=== PATIENT | female | born 1960 | race Caucasian/White ===

== ENCOUNTER 2017-02-11 17:03 | Inpatient (IN) | payer OTHER ==
[2017-02-11] MEDS ORDERED: RX INFO: IV CONTRAST WAS GIVEN 1 EACH MISC MISCELLANE PRN (17:19)
--- NOTE | 2017-02-11 17:30 | ED ---
General Adult HPI - General Chief complaint: Abdominal Pain Stated complaint: abd pain Time Seen by Provider: 02/11/17 17:18 Source: patient, RN notes reviewed, old records reviewed Mode of arrival: ambulatory Limitations: no limitations - History of Present Illness Initial comments: This is a 36-year-old female here for evaluation of bowel pain with diarrhea. Patient has significant medical history consistent for gastric bypass surgery years ago, patient is always had it issues with indigestion and diarrhea. Patient also states she has had a colostomy in the past with no found abnormalities. Patient denies fever denies blood in the stool, no vomiting. No travel history no sick contacts, no family members with similar complaint - Related Data Home Medications Medication Instructions Recorded Confirmed Albuterol Sulfate [Ventolin HFA] 1 - 2 puff INHALATION RT-QID PRN 02/11/1702/11 Beclomethasone Dipropionate [Qvar 2 puff INHALATION RT-BID PRN 02/11/17 02/11/17 40 mcg] DULoxetine HCL [Cymbalta] 60 mg PO DAILY 02/11/17 02/11/17 Levothyroxine Sodium [Synthroid] 150 mcg PO DAILY 02/11/17 02/11/17 Methocarbamol [Robaxin] 500 mg PO BID PRN 02/11/17 02/11/17 Simvastatin [Zocor] 20 mg PO HS 02/11/17 02/11/17 amLODIPine [Norvasc] 10 mg PO DAILY 02/11/17 02/11/17 lamoTRIgine [LaMICtal] 200 mg PO BID 02/11/17 02/11/17 rOPINIRole HCL [Requip] 0.25 mg PO HS 02/11/17 02/11/17 traZODone HCL 50 mg PO HS PRN 02/11/17 02/11/17 traZODone HCL 50 mg PO QAM 02/11/17 02/11/17 Allergies Allergy/AdvReac Type Severity Reaction Status Date / Time morphine Allergy Rash/Hives Verified 02/11/17 17:49 Sulfa (Sulfonamide Allergy Rash/Hives Verified 02/11/17 17:49 Antibiotics) Review of Systems ROS Statement: Those systems with pertinent positive or pertinent negative responses have been documented in the HPI. ROS Other: All systems not noted in ROS Statement are negative. Past Medical History Past Medical History: Hypertension, Thyroid Disorder Additional Past Medical History / Comment(s): RLS History of Any Multi-Drug Resistant Organisms: None Reported Past Surgical History: Bariatric Surgery, Hysterectomy, Orthopedic Surgery, Tonsillectomy Additional Past Surgical History / Comment(s): wrist, rotator cuff, bunionectomy Past Psychological History: Depression Smoking Status: Current every day smoker Past Alcohol Use History: Rare Past Drug Use History: None Reported General Exam Limitations: no limitations General appearance: alert, in no apparent distress Head exam: Present: atraumatic, normocephalic, normal inspection Eye exam: Present: normal appearance, PERRL, EOMI. Absent: scleral icterus, conjunctival injection, periorbital swelling ENT exam: Present: normal exam, mucous membranes moist Neck exam: Present: normal inspection. Absent: tenderness, meningismus, lymphadenopathy Respiratory exam: Present: normal lung sounds bilaterally. Absent: respiratory distress, wheezes, rales, rhonchi, stridor Cardiovascular Exam: Present: regular rate, normal rhythm, normal heart sounds. Absent: systolic murmur, diastolic murmur, rubs, gallop, clicks GI/Abdominal exam: Present: soft, normal bowel sounds. Absent: distended, tenderness, guarding, rebound, rigid Extremities exam: Present: normal inspection, full ROM, normal capillary refill. Absent: tenderness, pedal edema, joint swelling, calf tenderness Back exam: Present: normal inspection Neurological exam: Present: alert, oriented X3, CN II-XII intact Psychiatric exam: Present: normal affect, normal mood Skin exam: Present: warm, dry, intact, normal color. Absent: rash Course Vital Signs 02/11/17 02/11/17 02/11/17 17:13 18:20 18:52 Temperature 98.3 F Pulse Rate 94 87 92 Respiratory 20 18 18 Rate Blood Pressure 124/85 139/68 145/70 O2 Sat by Pulse 98 98 95 Oximetry Medical Decision Making - Lab Data Result diagrams: 02/11/17 17:30 02/11/17 17:30 Lab Results 02/11/17 02/11/17 02/11/17 Range/Units 17:30 17:30 17:30 WBC 7.4 (3.8-10.6) k/uL RBC 4.60 (3.80-5.40) m/uL Hgb 14.0 (11.4-16.0) gm/dL Hct 40.9 (34.0-46.0) % MCV 89.0 (80.0-100.0) fL MCH 30.5 (25.0-35.0) pg MCHC 34.3 (31.0-37.0) g/dL RDW 13.5 (11.5-15.5) % Plt Count 480 H (150-450) k/uL Neutrophils % 70 % Lymphocytes % 17 % Monocytes % 8 % Eosinophils % 2 % Basophils % 1 % Neutrophils # 5.2 (1.3-7.7) k/uL Lymphocytes # 1.2 (1.0-4.8) k/uL Monocytes # 0.6 (0-1.0) k/uL Eosinophils # 0.1 (0-0.7) k/uL Basophils # 0.0 (0-0.2) k/uL Sodium 138 (137-145) mmol/L Potassium 3.7 (3.5-5.1) mmol/L Chloride 104 (98-107) mmol/L Carbon Dioxide 23 (22-30) mmol/L Anion Gap 11 mmol/L BUN 8 (7-17) mg/dL Creatinine 0.49 L (0.52-1.04) mg/dL Est GFR (MDRD) Af Amer >60 (>60 ml/min/1.73 sqM) Est GFR (MDRD) Non-Af >60 (>60 ml/min/1.73 sqM) Glucose 78 (74-99) mg/dL Plasma Lactic Acid Jaiden (0.7-2.0) mmol/L Calcium 8.9 (8.4-10.2) mg/dL Total Bilirubin 0.6 (0.2-1.3) mg/dL AST 27 (14-36) U/L ALT 30 (9-52) U/L Alkaline Phosphatase 149 H (38-126) U/L Total Creatine Kinase 95 (30-135) U/L CK-MB (CK-2) 1.2 (0.0-2.4) ng/mL CK-MB (CK-2) Rel Index 1.3 Troponin I <0.012 (0.000-0.034) ng/mL Total Protein 6.4 (6.3-8.2) g/dL Albumin 3.8 (3.5-5.0) g/dL Amylase 121 H (30-110) U/L Lipase 1039 H (23-300) U/L Urine Color Urine Appearance (Clear) Urine pH (5.0-8.0) Ur Specific [place] (1.001-1.035) Urine Protein (Negative) Urine Glucose (UA) (Negative) Urine Ketones (Negative) Urine Blood (Negative) Urine Nitrite (Negative) Urine Bilirubin (Negative) Urine Urobilinogen (<2.0) mg/dL Ur Leukocyte Esterase (Negative) Urine WBC (0-5) /hpf Ur Squamous Epith Cells (0-4) /hpf Urine Bacteria (None) /hpf Hyaline Casts (0-2) /lpf Urine Mucus (None) /hpf 02/11/17 02/11/17 Range/Units 17:30 17:30 WBC (3.8-10.6) k/uL RBC (3.80-5.40) m/uL Hgb (11.4-16.0) gm/dL Hct (34.0-46.0) % MCV (80.0-100.0) fL MCH (25.0-35.0) pg MCHC (31.0-37.0) g/dL RDW (11.5-15.5) % Plt Count (150-450) k/uL Neutrophils % % Lymphocytes % % Monocytes % % Eosinophils % % Basophils % % Neutrophils # (1.3-7.7) k/uL Lymphocytes # (1.0-4.8) k/uL Monocytes # (0-1.0) k/uL Eosinophils # (0-0.7) k/uL Basophils # (0-0.2) k/uL Sodium (137-145) mmol/L Potassium (3.5-5.1) mmol/L Chloride (98-107) mmol/L Carbon Dioxide (22-30) mmol/L Anion Gap mmol/L BUN (7-17) mg/dL Creatinine (0.52-1.04) mg/dL Est GFR (MDRD) Af Amer (>60 ml/min/1.73 sqM) Est GFR (MDRD) Non-Af (>60 ml/min/1.73 sqM) Glucose (74-99) mg/dL Plasma Lactic Acid Jaiden 0.9 (0.7-2.0) mmol/L Calcium (8.4-10.2) mg/dL Total Bilirubin (0.2-1.3) mg/dL AST (14-36) U/L ALT (9-52) U/L Alkaline Phosphatase (38-126) U/L Total Creatine Kinase (30-135) U/L CK-MB (CK-2) (0.0-2.4) ng/mL CK-MB (CK-2) Rel Index Troponin I (0.000-0.034) ng/mL Total Protein (6.3-8.2) g/dL Albumin (3.5-5.0) g/dL Amylase (30-110) U/L Lipase (23-300) U/L Urine Color Yellow Urine Appearance Cloudy H (Clear) Urine pH 6.0 (5.0-8.0) Ur Specific [place] 1.012 (1.001-1.035) Urine Protein Trace H (Negative) Urine Glucose (UA) Negative (Negative) Urine Ketones 2+ H (Negative) Urine Blood Negative (Negative) Urine Nitrite Negative (Negative) Urine Bilirubin Negative (Negative) Urine Urobilinogen <2.0 (<2.0) mg/dL Ur Leukocyte Esterase Negative (Negative) Urine WBC 1 (0-5) /hpf Ur Squamous Epith Cells 7 H (0-4) /hpf Urine Bacteria Rare H (None) /hpf Hyaline Casts 2 (0-2) /lpf Urine Mucus Many H (None) /hpf Disposition Clinical Impression: Abdominal pain, Acute pancreatitis Disposition: ADMITTED IP TO THIS HOSP Condition: Good Referrals: Nikhil Jara MD [Primary Care Provider] - 1-2 days
[2017-02-11 17:56] LABS: Appearance,Urine Cloudy (Clear); Bacteria,Urine Rare /hpf; Bilirubin,Urine Negative (Negative); Glucose,Urine (UA) Negative (Negative); Ketones,Urine 2+ (Negative); Leukocyte Esterase,Urine Negative (Negative); Mucus,Urine Many /hpf; Nitrite,Urine Negative (Negative); Particle Count 6084; Protein,Urine Trace (Negative); Specific Gravity,Urine 1.012 (1.001-1.035); Squamous Epithelial Cell,Urine 7 /hpf (0-4); UA Billing (MACRO vs. MICRO) MICRO; Urobilinogen,Urine <2.0 mg/dL (<2.0); WBC,Urine 1 /hpf (0-5)
[2017-02-11 18:04] LABS: ALT 30 U/L (9-52); AST 27 U/L (14-36); Alkaline Phosphatase 149 U/L (38-126); Amylase 121 U/L (30-110); Anion Gap 11 mmol/L; Blood Urea Nitrogen 8 mg/dL (7-17); Calcium 8.9 mg/dL (8.4-10.2); Carbon Dioxide 23 mmol/L (22-30); Chloride 104 mmol/L (98-107); Glucose 78 mg/dL (74-99); Non-African American GFR(MDRD) >60 (>60 ml/min/1.73 sqM); Potassium 3.7 mmol/L (3.5-5.1); Sodium 138 mmol/L (137-145); Total Bilirubin 0.6 mg/dL (0.2-1.3); Total Protein 6.4 g/dL (6.3-8.2)
[2017-02-11 18:07] LABS: Creatine Kinase 95 U/L (30-135)
[2017-02-11 18:12] LABS: Basophils % (A) 1 %; CH 29.1; CHCM 32.9; Eosinophils # (A) 0.1 k/uL (0-0.7); Eosinophils % (A) 2 %; HCT 40.9 % (34.0-46.0); HDW 2.46; Luc # (Auto) 0.19; Luc % (Auto) 3; Lymphocytes # (A) 1.2 k/uL (1.0-4.8); Lymphocytes % (A) 17 %; MCH 30.5 pg (25.0-35.0); MCHC 34.3 g/dL (31.0-37.0); Mean Platelet Volume 6.7; Monocytes # (A) 0.6 k/uL (0-1.0); Monocytes % (A) 8 %; Neutrophils # (A) 5.2 k/uL (1.3-7.7); Neutrophils % (A) 70 %; RDW 13.5 % (11.5-15.5); WBC 7.4 k/uL (3.8-10.6); WBC (Perox) 7.86
[2017-02-11 18:21] LABS: Creatine Kinase MB 1.2 ng/mL (0.0-2.4); Troponin I <0.012 ng/mL (0.000-0.034)
--- NOTE | 2017-02-11 18:26 | CT ---
EXAMINATION TYPE: CT abdomen pelvis w con DATE OF EXAM: 02/11/2017 COMPARISON: NONE HISTORY: Patient complains of uncontrollable diarrhea. CT DLP: 488.6 mGycm CONTRAST: CT scan of the abdomen and pelvis is performed without Oral Contrast and with IV Contrast, patient in jected with 100 mL of Omnipaque 300. FINDINGS: LUNG BASES-: No visible nodule. No infiltrate. LIVER/GB: No calcified gallstones. No space occupying hepatic lesion. Biliary tree is of normal ca liber. PANCREAS: No inflammation. No distinct mass. SPLEEN: No splenic enlargement. No lesion seen. ADRENALS: No nodule. No thickening. KIDNEYS/BLADDER: No hydronephrosis. No nephrolithiasis. No disctinct renal mass. Urinary bladder g rossly unremarkable. BOWEL: Changes of gastric bypass procedure. There is diffuse wall thickening involving the colon from the sigmoid colon. The cecum which may reflect infectious or inflammatory colitis. No evidence for a bscess or perforation. Normal appendix. GENITAL ORGANS: Hysterectomy changes are noted. No evidence for adnexal mass. LYMPH NODES: No greater than 1cm abdominal or pelvic lymph nodes are appreciated. AORTA: No significant abnormality. OSSEOUS STRUCTURES: Postoperative changes lumbar spine. OTHER: No significant additional abnormality is seen. IMPRESSION: 1. Nonspecific pancolitis.
[2017-02-11] MEDS ORDERED: ONDANSETRON 4 MG/2 ML VIAL IVP STA (18:33)
[2017-02-11] MEDS ORDERED: ONDANSETRON 4 MG/2 ML VIAL IVP PRN (18:33)
[2017-02-11] MEDS ORDERED: MORPHINE SULFATE 4 MG/ML SYRINGE IVP STA (18:33)
[2017-02-11] MEDS ORDERED: PANTOPRAZOLE 40 MG/10 ML VIAL IVP STA (18:33)
[2017-02-11] MEDS ORDERED: SODIUM CHLORIDE 0.9% 2,000 ML IV STA (18:41)
[2017-02-11] MEDS ORDERED: SODIUM CHLORIDE 0.9% 1,000 ML IV STA (18:41)
[2017-02-11] MEDS ORDERED: SODIUM CHLORIDE 0.9% 500 ML IV STA (18:41)
[2017-02-11] MEDS ORDERED: diphenhydrAMINE 50 MG/ML 1 ML VIAL IVP PRN (19:10)
[2017-02-11] MEDS ORDERED: METHOCARBAMOL 500 MG TAB PO PRN (21:32)
[2017-02-11] MEDS ORDERED: traZODone HCL 50 MG TAB PO PRN (21:32)
[2017-02-11] MEDS: MORPHINE SULFATE 4 MG/ML SYRINGE IVP PRN (23:18)
[2017-02-11] MEDS: lamoTRIgine 100 MG TAB PO SCH (23:22)
[2017-02-12] MEDS: MORPHINE SULFATE 4 MG/ML SYRINGE IVP PRN ×6 (03:07→23:18)
[2017-02-12] MEDS: BUDESONIDE 0.5 MG/2 ML NEBU INHALATION SCH ×2 (06:51→19:24)
[2017-02-12] MEDS: LEVOTHYROXINE 75 MCG TAB PO SCH (07:04)
[2017-02-12 07:34] VITALS: RESP 16
[2017-02-12] MEDS ORDERED: VANCOMYCIN ORAL SOLUTION 250 MG/5 ML BOTTLE PO SCH (08:15)
[2017-02-12] MEDS: PANTOPRAZOLE 40 MG/10 ML VIAL IVP SCH (08:57)
[2017-02-12] MEDS: lamoTRIgine 100 MG TAB PO SCH ×2 (08:58→20:53)
[2017-02-12] MEDS: traZODone HCL 50 MG TAB PO SCH (08:58)
[2017-02-12] MEDS: ENOXAPARIN 40 MG/0.4 ML SYRINGE SQ SCH (08:58)
[2017-02-12] MEDS: VANCOMYCIN ORAL SOLUTION 250 MG/5 ML BOTTLE PO SCH ×4 (08:58→23:18)
[2017-02-12] MEDS: amLODIPine 10 MG TAB PO SCH (08:58)
[2017-02-12] MEDS: DULoxetine HCL 60 MG CAPSULE.DR PO SCH (08:58)
[2017-02-12] MEDS: CHERRY FLAVOR 60 ML BOTTLE PO PRN ×4 (08:59→23:17)
[2017-02-12] MEDS: SODIUM CHLORIDE 0.9% 1,000 ML IV SCH ×2 (10:33→20:53)
[2017-02-12] MEDS: ALBUTEROL NEBULIZED 2.5 MG/3 ML INHALATION PRN (19:25)
[2017-02-13] MEDS: MORPHINE SULFATE 4 MG/ML SYRINGE IVP PRN ×2 (03:56→08:27)
[2017-02-13] MEDS: VANCOMYCIN ORAL SOLUTION 250 MG/5 ML BOTTLE PO SCH ×2 (06:31→11:06)
[2017-02-13] MEDS: CHERRY FLAVOR 60 ML BOTTLE PO PRN ×2 (06:31→11:06)
[2017-02-13] MEDS: SODIUM CHLORIDE 0.9% 1,000 ML IV SCH (06:33)
[2017-02-13] MEDS: LEVOTHYROXINE 75 MCG TAB PO SCH (06:33)
[2017-02-13 08:14] VITALS: BP 126/69; TEMP 98
[2017-02-13 08:16] LABS: ALT 28 U/L (9-52); AST 17 U/L (14-36); Alkaline Phosphatase 113 U/L (38-126); Amylase <30 U/L (30-110); Anion Gap 8 mmol/L; Blood Urea Nitrogen 3 mg/dL (7-17); Calcium 8.4 mg/dL (8.4-10.2); Carbon Dioxide 27 mmol/L (22-30); Chloride 102 mmol/L (98-107); Glucose 92 mg/dL (74-99); Non-African American GFR(MDRD) >60 (>60 ml/min/1.73 sqM); Potassium 3.1 mmol/L (3.5-5.1); Sodium 137 mmol/L (137-145); Total Bilirubin 0.4 mg/dL (0.2-1.3); Total Protein 5.4 g/dL (6.3-8.2)
[2017-02-13] MEDS: PANTOPRAZOLE 40 MG/10 ML VIAL IVP SCH (08:28)
[2017-02-13] MEDS: ENOXAPARIN 40 MG/0.4 ML SYRINGE SQ SCH (08:28)
[2017-02-13] MEDS: amLODIPine 10 MG TAB PO SCH (08:28)
[2017-02-13] MEDS: DULoxetine HCL 60 MG CAPSULE.DR PO SCH (08:28)
[2017-02-13] MEDS: lamoTRIgine 100 MG TAB PO SCH (08:28)
[2017-02-13] MEDS: traZODone HCL 50 MG TAB PO SCH (08:29)
[2017-02-13] MEDS ORDERED: MORPHINE SULFATE 2 MG/ML SYRINGE IVP PRN (08:46)
[2017-02-13] MEDS: POTASSIUM CHLORIDE ER 20 MEQ TAB.ER PO SCH ×2 (09:16→11:06)
[2017-02-13] MEDS: ALBUTEROL NEBULIZED 2.5 MG/3 ML INHALATION PRN (11:09)
[2017-02-13] MEDS: BUDESONIDE 0.5 MG/2 ML NEBU INHALATION SCH (11:09)
[2017-02-13 11:10] VITALS: PULSE 88
--- NOTE | 2017-02-13 13:35 | P.HPIM ---
History of Present Illness H&P Date: 02/12/17 Chief Complaint: Frequent stooling 56-year-old female presented on the day of admission to the emergency room to be evaluated for abdominal pain with frequent stooling. Patient gives a history of having gastric bypass surgery many years ago and patient states that she always has problems with loose stools. Patient was seen in the emergency room noted to have a lipase elevated 1000. Patient was started on IV fluid and admitted to the services of the attending. Patient gives no history of having prior pancreatitis. Denies any use of alcohol. A stool was collected was positive for C. diff patient was started on by mouth vancomycin patient had a CAT scan of the abdomen pelvis with contrast. Reviewing the report showed no hydronephrosis. No calcified gallstones noted pancreas was not inflamed no mass the bowel showed changes of gastric bypass procedure. No evidence for an abscess or perforation the appendix normal the cecum may reflect infectious or inflammatory colitis patient is a poor historian when questioning the patient if there has been any recent antibiotics for any recent treatment patient states she's not sure she cannot recall Review of Systems Essentially unremarkable except as mentioned in the present illness Past Medical History Past Medical History: Hyperlipidemia, Hypertension, Thyroid Disorder Additional Past Medical History / Comment(s): RLS, chronic diarrhea (frequent); DJD with spinal surgury x 4 History of Any Multi-Drug Resistant Organisms: C-DIFF Date of last positivie culture/infection: 02/12/17 MDRO Source:: stool Past Surgical History: Bariatric Surgery, Hysterectomy, Orthopedic Surgery, Tonsillectomy Additional Past Surgical History / Comment(s): Neelam-en-Y sx in 1999; wrist, rotator cuff, bunionectomy; neck surgery Past Anesthesia/Blood Transfusion Reactions: No Reported Reaction Past Psychological History: Bipolar, Depression Smoking Status: Current every day smoker Past Alcohol Use History: Rare Past Drug Use History: None Reported - Past Family History Father Family Medical History: CVA/TIA Mother Family Medical History: Deep Vein Thrombosis (DVT), Pulmonary Embolus Medications and Allergies Home Medications Medication Instructions Recorded Confirmed Type Albuterol Sulfate [Ventolin HFA] 1 - 2 puff INHALATION RT-QID PRN 02/11/1702/11 History Beclomethasone Dipropionate [Qvar 2 puff INHALATION RT-BID PRN 02/11/17 History 40 mcg] DULoxetine HCL [Cymbalta] 60 mg PO DAILY 02/11/17 02/11/17 History Levothyroxine Sodium [Synthroid] 150 mcg PO DAILY 02/11/17 02/11/17 History Methocarbamol [Robaxin] 500 mg PO BID PRN 02/11/17 02/11/17 History Simvastatin [Zocor] 20 mg PO HS 02/11/17 02/11/17 History amLODIPine [Norvasc] 10 mg PO DAILY 02/11/17 02/11/17 History lamoTRIgine [LaMICtal] 200 mg PO BID 02/11/17 02/11/17 History rOPINIRole HCL [Requip] 0.25 mg PO HS 02/11/17 02/11/17 History traZODone HCL 50 mg PO HS PRN 02/11/17 02/11/17 History traZODone HCL 50 mg PO QAM 02/11/17 02/11/17 History Allergies Allergy/AdvReac Type Severity Reaction Status Date / Time morphine Allergy Rash/Hives Verified 02/11/17 17:49 Sulfa (Sulfonamide Allergy Rash/Hives Verified 02/11/17 17:49 Antibiotics) Physical Exam Vitals: Vital Signs Temp Pulse Pulse Resp BP Pulse Ox 02/13/17 11:22 88 02/13/17 11:09 88 02/13/17 08:00 16 02/13/17 07:00 98.0 F 79 16 126/69 93 L 02/12/17 23:00 97.7 F 86 16 103/72 97 02/12/17 19:45 92 02/12/17 19:25 90 02/12/17 15:00 99.6 F 95 16 111/59 92 L Intake and Output 02/12/17 02/13/17 02/13/17 22:59 06:59 14:59 Other: # Voids 1 2 # Bowel Movements 2 GENERAL APPEARANCE: 56 -year-old female patient is alert, oriented, in no acute distress. VITAL SIGNS: Reviewed HEENT: Head is normocephalic and atraumatic. Pupils are equal and reactive. The nares are patent. Oropharynx is clear without lesions. NECK: Supple without lymphadenopathy. Traches midline. HEART: S1, S2. Regular rate and rhythm. No murmur noted denying chest pain LUNGS: No crackles or wheezes are heard. Essentially clear adequate air movement on room air ABDOMEN: Soft, nontender, nondistended with good bowel sounds. No peritoneal signs. No palpable organomegaly or masses. EXTREMITIES: Normal skin color and turgor. No cyanosis, rash, ulceration, clubbing or edema. Radial pedal pulses are 2/4 bilaterally. NEUROLOGICAL: No focal deficits. Strength and sensation are grossly intact. Results CBC & Chem 7: 02/11/17 17:30 02/13/17 07:35 Labs: Abnormal Lab Results - Last 24 Hours (Table) 02/13/17 Range/Units 07:35 Potassium 3.1 L (3.5-5.1) mmol/L BUN 3 L (7-17) mg/dL Creatinine 0.42 L (0.52-1.04) mg/dL Total Protein 5.4 L (6.3-8.2) g/dL Albumin 3.0 L (3.5-5.0) g/dL Amylase <30 L (30-110) U/L Microbiology - Last 24 Hours (Table) 02/11/17 17:30 Urine Culture - Final Urine,Voided Thrombosis Risk Factor Assmnt - Choose All That Apply Any of the Below Risk Factors Present?: Yes Each Factor Represents 1 point: Age 41-60 years, Obesity (BMI >25) Each Risk Factor Represents 3 Points: Positive Factor V Leiden, Family history of DVT/PE Thrombosis Risk Factor Assessment Total Risk Factor Score: 8 Thrombosis Risk Factor Assessment Level: High Risk Assessment and Plan Plan: Impression Present on admission abdominal pain frequent stooling suspect due to C. diff Present on admission stool positive for C. diff History of gastric bypass surgery for treatment of morbid obesity Present on admission electrolyte abnormality hypokalemia CAT scan abdomen and pelvis with contrast showed nonspecific pancolitis Present on admission abdominal pain suspect due to acute pancreatitis Hypothyroid on supplements Mood disorder Current every day smoker Plan Continue by mouth vancomycin for treatment of the C. diff Repeat labs in the morning Resume home meds as appropriate IV fluid for hydration DVT and GI prophylaxis Further recommendations pending The above impression and plan of care have been discussed and directed by signing physician. Makayla Desir nurse practitioner acting as scribe for signing physician.
--- NOTE | 2017-02-13 13:46 | P.DS ---
Providers Date of admission: 02/11/17 19:09 Expected date of discharge: 02/13/17 Attending physician: Nikhil Jara Primary care physician: Nikhil Jara [facility] Course: 56-year-old female presented on the day of admission to the emergency room to be evaluated for abdominal pain with frequent stooling. Patient gives a history of having gastric bypass surgery many years ago and patient states that she always has problems with loose stools. Patient was seen in the emergency room noted to have a lipase elevated 1000. Patient was started on IV fluid and admitted to the services of the attending. Patient gives no history of having prior pancreatitis. Denies any use of alcohol. A stool was collected was positive for C. diff patient was started on by mouth vancomycin patient had a CAT scan of the abdomen pelvis with contrast. Reviewing the report showed no hydronephrosis. No calcified gallstones noted pancreas was not inflamed no mass the bowel showed changes of gastric bypass procedure. No evidence for an abscess or perforation the appendix normal the cecum may reflect infectious or inflammatory colitis patient is a poor historian when questioning the patient if there has been any recent antibiotics for any recent treatment patient states she's not sure she cannot recall The lipase was repeated within 24 hours and on February 13 it was down to 28. Admitting lipase was 1039. Amylase on admission 121. Repeat amylase on the less than 30. AST and ALT were not elevated. Total bili was 0.4. Potassium was 3.1 which replacement was given. Patient stated the abdominal pain had improved. Patient was felt to be stable and appropriate proceed with a discharge to home Impression Present on admission abdominal pain frequent stooling suspect due to C. diff Present on admission stool positive for C. diff History of gastric bypass surgery for treatment of morbid obesity Present on admission electrolyte abnormality hypokalemia CAT scan abdomen and pelvis with contrast showed nonspecific pancolitis Present on admission abdominal pain suspect due to acute pancreatitis Hypothyroid on supplements Mood disorder Current every day smoker The above impression and plan of care have been discussed and directed by signing physician. Makayla Desir nurse practitioner acting as scribe for signing physician. Patient Condition at Discharge: Good Plan - Discharge Summary New Discharge Prescriptions: New Vancomycin Oral Solution 500 mg PO Q6HR #400 bottle Continue Beclomethasone Dipropionate [Qvar 40 mcg] 2 puff INHALATION RT-BID PRN PRN Reason: Shortness Of Breath traZODone HCL 50 mg PO HS PRN PRN Reason: Insomnia traZODone HCL 50 mg PO QAM lamoTRIgine [LaMICtal] 200 mg PO BID Methocarbamol [Robaxin] 500 mg PO BID PRN PRN Reason: Muscle Spasm DULoxetine HCL [Cymbalta] 60 mg PO DAILY rOPINIRole HCL [Requip] 0.25 mg PO HS amLODIPine [Norvasc] 10 mg PO DAILY Simvastatin [Zocor] 20 mg PO HS Levothyroxine Sodium [Synthroid] 150 mcg PO DAILY Albuterol Sulfate [Ventolin HFA] 1 - 2 puff INHALATION RT-QID PRN PRN Reason: Shortness Of Breath Discharge Medication List Albuterol Sulfate [Ventolin HFA] 1 - 2 puff INHALATION RT-QID PRN 02/11/17 [ History] Beclomethasone Dipropionate [Qvar 40 mcg] 2 puff INHALATION RT-BID PRN 02/11/17 [History] DULoxetine HCL [Cymbalta] 60 mg PO DAILY 02/11/17 [History] Levothyroxine Sodium [Synthroid] 150 mcg PO DAILY 02/11/17 [History] Methocarbamol [Robaxin] 500 mg PO BID PRN 02/11/17 [History] Simvastatin [Zocor] 20 mg PO HS 02/11/17 [History] amLODIPine [Norvasc] 10 mg PO DAILY 02/11/17 [History] lamoTRIgine [LaMICtal] 200 mg PO BID 02/11/17 [History] rOPINIRole HCL [Requip] 0.25 mg PO HS 02/11/17 [History] traZODone HCL 50 mg PO HS PRN 02/11/17 [History] traZODone HCL 50 mg PO QAM 02/11/17 [History] Vancomycin Oral Solution 500 mg PO Q6HR #400 bottle 02/13/17 [Rx] Follow up Appointment(s)/Referral(s): Nikhil Jara MD [Primary Care Provider] - 02/14/17 Patient Instructions/Handouts: Pancreatitis (DC), Clostridium Difficile Infection (DC) Activity/Diet/Wound Care/Special Instructions: NO alcohol NO smoking, cessation information given. Regular diet. Discharge Disposition: HOME SELF-CARE
[2017-02-13] MEDS ORDERED: POTASSIUM CHLORIDE ER 20 MEQ TAB.ER PO SCH (14:00)
--- NOTE | 2017-02-15 07:09 | HP ---
CHIEF COMPLAINT: Abdominal pain and diarrhea. HISTORY OF PRESENT ILLNESS: This is another admission for this 56-year-old white female. She presented to the emergency with epigastric pain and vomiting and was found to have pancreatitis. This was the first episode of pancreatitis for this lady. She has had a bypass procedure for weight loss. She has also had diarrhea for about 3 weeks. REVIEW OF SYSTEMS: She has had no hematemesis, melena, fever, etc. She does not drink. Review of systems, she has had no other complaints or problems. She has had no melena, hematochezia, jaundice, renal failure, etc. Past medical history, family history and personal social history revealed that she has a history of asthma and probably COPD. She has had bouts of depression and she has hypothyroidism. Her medications include: 1. Levothyroxine 0.15 mg. 2. Methocarbamol 500 mg twice a day p.r.n. 3. Requip 0.25 at bedtime p.r.n. 4. Simvastatin 20 mg at bedtime. 5. Norvasc 10 mg once a day. 6. Duloxetine 60 mg once a day. 7. Trazodone 50 mg one to three at bedtime p.r.n. sleep. 8. Meloxicam 15 mg twice a day. 9. Lamotrigine 200 mg 2 every morning. 10. Ventolin HFA. 11. Qvar 40 two puffs twice a day. The remainder of her history is unremarkable. PHYSICAL EXAMINATION: Blood pressure is 138/94 with a pulse of 88, respirations 32 and she is afebrile. GENERAL: She appeared to be in some mild distress. Skin color is normal. Skin is warm and dry. Lymph nodes are not enlarged. Head, ears, eyes, nose, mouth and throat were normal except for dry mucous membranes. Neck veins are not distended. The carotids are normal. The chest is clear. Cardiac exam is normal. The abdomen is a little bit tender over the epigastrium. Bowel sounds are present. Extremities are normal. Neurologically, she is intact. IMPRESSION: 1. Acute pancreatitis. 2. Clostridium difficile. 3. Hypertension. 4. Hypothyroidism. 5. Arthritis. PLAN: 1. Bed rest. 2. N.p.o. 3. IV fluids. 4. Treat C. difficile. [facility] CENTERAleks
--- NOTE | 2017-02-15 07:16 | PN ---
CHIEF COMPLAINT: Pancreatitis and C. difficile. HISTORY OF PRESENT ILLNESS: This lady is still having some discomfort. She is a bit better. The nausea has stopped. She is positive for C. difficile toxin and she has been started on vancomycin. PHYSICAL EXAM: Chest is clear. Cardiac exam is normal. She is still a little bit tender over the epigastrium. IMPRESSION: 1. Pancreatitis. 2. Clostridium difficile. PLAN: 1. Continue with IV fluids. 2. Vancomycin 250 mg q.i.d. orally. MTDD
--- NOTE | 2017-02-15 14:56 | PN ---
CHIEF COMPLAINT: Acute pancreatitis. HISTORY OF PRESENT ILLNESS: This lady is doing well. She has no pain. Her ( ) have dropped completely to normal. She has been eating and we will probably let her go home today. PHYSICAL EXAM: Her chest is clear. Cardiac exam is normal. The abdomen is soft and non-tender. IMPRESSION: Acute pancreatitis. PLAN: Probably home today, and this will be arranged by the nurse practitioner. SIMI
== END 2017-02-13 16:11 | disposition home or self-care (01) | DRG 371 ==
LOC: EC 17:03 → 4MS4W 19:09
PROVIDERS: ADMIT Family Medicine; ATTEND Family Medicine
DX: A04.7 Enterocolitis due to Clostridium difficile (principal); K85.90 Acute pancreatitis without necrosis or infection, unspecified; K51.00 Ulcerative (chronic) pancolitis without complications; I10 Essential (primary) hypertension; F32.9 Major depressive disorder, single episode, unspecified; E03.9 Hypothyroidism, unspecified; E78.5 Hyperlipidemia, unspecified; F17.200 Nicotine dependence, unspecified, uncomplicated; G25.81 Restless legs syndrome; M19.90 Unspecified osteoarthritis, unspecified site; E87.6 Hypokalemia; K52.9 Noninfective gastroenteritis and colitis, unspecified; J44.9 Chronic obstructive pulmonary disease, unspecified; E66.9 Obesity, unspecified; Z68.25 Body mass index [BMI] 25.0-25.9, adult; Z79.899 Other long term (current) drug therapy; Z98.84 Bariatric surgery status; Z88.5 Allergy status to narcotic agent; Z88.2 Allergy status to sulfonamides
CPT/HCPCS: 36415; 74177; 80053; 81001; 82150; 82272; 82550; 82553; 83605; 83690; 84484; 85025; 87086; 87324; 94640; 96361; 96374; 96375; 99285

== ENCOUNTER → 2017-06-30 | Outpatient (CLI) | payer OTHER ==
--- NOTE | 2017-07-02 07:59 | MM ---
Reason for exam: screening (asymptomatic). Last mammogram was performed 1 year and 1 month ago. History: Patient is postmenopausal. Family history of premenopausal breast cancer in paternal cousin at age 46. Took estrogen for 4 years 2 months beginning at age 44. Physical Findings: A clinical breast exam by your physician is recommended on an annual basis and results should be correlated with mammographic findings. MG Screening Mammo w CAD Bilateral CC and MLO view(s) were taken. Prior study comparison: June 05, 2016, bilateral MG screening mammo w CAD. May 30, 2015, bilateral MG screening mammo w CAD. The breast tissue is heterogeneously dense. This may lower the sensitivity of mammography. No significant changes when compared with prior studies. ASSESSMENT: Negative, BI-RAD 1 RECOMMENDATION: Routine screening mammogram of both breasts in 1 year.
== END | disposition home or self-care (01) ==
LOC: RADMAMWWP 13:26
PROVIDERS: ATTEND Family Medicine
DX: Z12.31 Encounter for screening mammogram for malignant neoplasm of breast (principal)

== ENCOUNTER → 2019-07-05 | Outpatient (CLI) | payer OTHER ==
--- NOTE | 2019-07-06 11:38 | MM ---
Reason for exam: screening (asymptomatic). Last mammogram was performed 2 years ago. History: Patient is postmenopausal. Family history of premenopausal breast cancer in paternal cousin at age 46. Took estrogen for 4 years 2 months beginning at age 44. Physical Findings: A clinical breast exam by your physician is recommended on an annual basis and results should be correlated with mammographic findings. MG Screening Mammo w CAD Bilateral CC and MLO view(s) were taken. Prior study comparison: June 30, 2017, bilateral MG screening mammo w CAD. June 05, 2016, bilateral MG screening mammo w CAD. The breast tissue is heterogeneously dense. This may lower the sensitivity of mammography. Stable benign calcifications. There is no discrete abnormality. No significant changes when compared with prior studies. ASSESSMENT: Benign, BI-RAD 2 RECOMMENDATION: Routine screening mammogram of both breasts in 1 year.
== END | disposition home or self-care (01) ==
LOC: RADMAMWWP 14:40
PROVIDERS: ATTEND Family Medicine
DX: Z12.31 Encounter for screening mammogram for malignant neoplasm of breast (principal)
CPT/HCPCS: 77067

== ENCOUNTER 2020-08-23 12:44 | Emergency (ER) | payer OTHER ==
[2020-08-23 12:51] VITALS: TEMP 98.3
[2020-08-23] MEDS ORDERED: LIDOCAINE 5% PATCH TOPICAL STA (13:06)
--- NOTE | 2020-08-23 13:10 | ED ---
General Adult HPI - General Chief complaint: Shortness of Breath Stated complaint: Lft side abd pain Time Seen by Provider: 08/23/20 12:55 Source: patient Mode of arrival: wheelchair Limitations: no limitations - History of Present Illness Initial comments: Dictation was produced using Marfeel dictation software. please excuse any grammatical, word or spelling errors. This patient was cared for during a federal and state declared state of emerge ncy secondary to Covid 19 Chief Complaint: 60-year-old female presents to the emergency department for chest pain History of Present Illness: Patient is a 60-year-old female she has past medical history of factor V Leiden. She presents today with cold days of shortness of breath and sharp left-sided chest pain. Patient states she has point tenderness to her left thoracic rib cage. She states she quit smoking last month. She has history of COPD, dyslipidemia hypertension. Denies any fevers. She states she's not having any coughing. Patient never had a blood clot however has f amily history of blood clots. The ROS documented in this emergency department record has been reviewed and confirmed by me. Those systems with pertinent positive or negative responses have been documented in the HPI. All other systems are other negative and/or noncontributory. PHYSICAL EXAM: General Impression: Alert and oriented x3, not in acute distress HEENT: Normocephalic atraumatic, extra-ocular movements intact, pupils equal and reactive to light bilaterally, mucous membranes moist. Cardiovascular: Heart regular rate and rhythm Chest: Able to complete full sentences, no retractions, no tachypnea, clear to auscultation bilaterally, severe point tenderness with palpation to the left anterolateral thoracic cage Abdomen: abdomen soft, non-tender, non-distended, no organomegaly Musculoskeletal: Pulses present and equal in all extremities, no peripheral edema Motor: no focal deficits noted Neurological: CN II-XII grossly intact, no focal motor or sensory deficits noted Skin: Intact with no visualized rashes Psych: Normal affect and mood ED course: 60-year-old who presents with atypical chest pain with associated shortness of breath. Patient has heart rate of 137, 26 respiratory rate, rest of vital signs within acceptable limits. EKG shows sinus tachycardia. Laboratory evaluation is unremarkable. CBC unremarkable. Cardiac panel is negative. Metabolic panel is negative. D-dimer is negative Virus is negative. Chest x-ray is nonacute. Patient feeling better on ree valuation. Patient will be discharged. EKG interpretation: Ventricular rate 123, sinus tachycardia, MO interval 140, QRS 74, QTC 443. No MO prolongation, no QTC prolongation, no ST or T-wave changes noted. Overall, this EKG is unremarkable - Related Data Home Medications Medication Instructions Recorded Confirmed Albuterol Sulfate [Ventolin HFA] 1 - 2 puff INHALATION RT-QID PRN 02/11/17 02/11/17 Beclomethasone Dipropionate [Qvar 2 puff INHALATION RT-BID PRN 02/11/17 02/11/17 40 mcg] DULoxetine HCL [Cymbalta] 60 mg PO DAILY 02/11/17 02/11/17 Levothyroxine Sodium [Synthroid] 150 mcg PO DAILY 02/11/17 02/11/17 Methocarbamol [Robaxin] 500 mg PO BID PRN 02/11/17 02/11/17 Simvastatin [Zocor] 20 mg PO HS 02/11/17 02/11/17 amLODIPine [Norvasc] 10 mg PO DAILY 02/11/17 02/11/17 lamoTRIgine [LaMICtal] 200 mg PO BID 02/11/17 02/11/17 rOPINIRole HCL [Requip] 0.25 mg PO HS 02/11/17 02/11/17 traZODone HCL 50 mg PO HS PRN 02/11/17 02/11/17 traZODone HCL 50 mg PO QAM 02/11/17 02/11/17 Previous Rx's Medication Instructions Recorded Vancomycin Oral Solution 500 mg PO Q6HR #400 bottle 02/13/17 Allergies Allergy/AdvReac Type Severity Reaction Status Date / Time morphine Allergy Rash/Hives Verified 08/23/20 12:51 Sulfa (Sulfonamide Allergy Rash/Hives Verified 08/23/20 12:51 Antibiotics) Review of Systems ROS Statement: Those systems with pertinent positive or pertinent negative responses have been documented in the HPI. ROS Other: All systems not noted in ROS Statement are negative. Past Medical History Past Medical History: COPD, Hyperlipidemia, Hypertension, Thyroid Disorder Additional Past Medical History / Comment(s): RLS, chronic diarrhea (frequent); DJD with spinal surgury x 4 History of Any Multi-Drug Resistant Organisms: C-DIFF Date of last positivie culture/infection: 02/12/17 MDRO Source:: stool Past Surgical History: Bariatric Surgery, Hysterectomy, Orthopedic Surgery, Tonsillectomy Additional Past Surgical History / Comment(s): Neelam-en-Y sx in 1999; wrist, ro tator cuff, bunionectomy; neck surgery Past Anesthesia/Blood Transfusion Reactions: No Reported Reaction Past Psychological History: Bipolar, Depression Smoking Status: Former smoker Past Alcohol Use History: Rare Past Drug Use History: None Reported - Past Family History Father Family Medical History: CVA/TIA Mother Family Medical History: Deep Vein Thrombosis (DVT), Pulmonary Embolus General Exam Limitations: no limitations Course Vital Signs 08/23/20 08/23/20 08/23/20 12:47 13:22 14:00 Temperature 98.3 F Pulse Rate 137 H 98 100 Respiratory 26 H 18 14 Rate Blood Pressure 120/78 123/84 128/84 O2 Sat by Pulse 97 98 95 Oximetry Medical Decision Making - Lab Data Result diagrams: 08/23/20 13:21 08/23/20 13:21 Lab Results 08/23/20 08/23/20 08/23/20 Range/Units 13:10 13:21 13:21 WBC 9.4 (3.8-10.6) k/uL RBC 4.62 (3.80-5.40) m/uL Hgb 14.5 (11.4-16.0) gm/dL Hct 43.7 (34.0-46.0) % MCV 94.5 (80.0-100.0) fL MCH 31.5 (25.0-35.0) pg MCHC 33.3 (31.0-37.0) g/dL RDW 13.0 (11.5-15.5) % Plt Count 376 (150-450) k/uL MPV 7.3 Neutrophils % 71 % Lymphocytes % 19 % Monocytes % 7 % Eosinophils % 1 % Basophils % 1 % Neutrophils # 6.7 (1.3-7.7) k/uL Lymphocytes # 1.8 (1.0-4.8) k/uL Monocytes # 0.7 (0-1.0) k/uL Eosinophils # 0.1 (0-0.7) k/uL Basophils # 0.1 (0-0.2) k/uL PT 9.7 (9.0-12.0) sec INR 0.9 (<1.2) APTT 22.9 (22.0-30.0) sec D-Dimer 0.43 (<0.60) mg/L FEU Sodium (137-145) mmol/L Potassium (3.5-5.1) mmol/L Chloride (98-107) mmol/L Carbon Dioxide (22-30) mmol/L Anion Gap mmol/L BUN (7-17) mg/dL Creatinine (0.52-1.04) mg/dL Est GFR (CKD-EPI)AfAm (>60 ml/min/1.73 sqM) Est GFR (CKD-EPI)NonAf (>60 ml/min/1.73 sqM) Glucose (74-99) mg/dL Calcium (8.4-10.2) mg/dL Coronavirus (PCR) Not Detected (Not Detectd) 08/23/20 Range/Units 13:21 WBC (3.8-10.6) k/uL RBC (3.80-5.40) m/uL Hgb (11.4-16.0) gm/dL Hct (34.0-46.0) % MCV (80.0-100.0) fL MCH (25.0-35.0) pg MCHC (31.0-37.0) g/dL RDW (11.5-15.5) % Plt Count (150-450) k/uL MPV Neutrophils % % Lymphocytes % % Monocytes % % Eosinophils % % Basophils % % Neutrophils # (1.3-7.7) k/uL Lymphocytes # (1.0-4.8) k/uL Monocytes # (0-1.0) k/uL Eosinophils # (0-0.7) k/uL Basophils # (0-0.2) k/uL PT (9.0-12.0) sec INR (<1.2) APTT (22.0-30.0) sec D-Dimer (<0.60) mg/L FEU Sodium 140 (137-145) mmol/L Potassium 5.1 (3.5-5.1) mmol/L Chloride 110 H (98-107) mmol/L Carbon Dioxide 23 (22-30) mmol/L Anion Gap 7 mmol/L BUN 18 H (7-17) mg/dL Creatinine 0.56 (0.52-1.04) mg/dL Est GFR (CKD-EPI)AfAm >90 (>60 ml/min/1.73 sqM) Est GFR (CKD-EPI)NonAf >90 (>60 ml/min/1.73 sqM) Glucose 81 (74-99) mg/dL Calcium 9.4 (8.4-10.2) mg/dL Coronavirus (PCR) (Not Detectd) Disposition Clinical Impression: Chest wall muscle strain Disposition: HOME SELF-CARE Condition: Good Instructions (If sedation given, give patient instructions): Chest Pain (ED) Is patient prescribed a controlled substance at d/c from ED?: No Referrals: Nikhil Jara MD [Primary Care Provider] - 1-2 days Time of Disposition: 14:24
--- NOTE | 2020-08-23 13:44 | XR ---
EXAMINATION TYPE: XR chest 1V portable DATE OF EXAM: 08/23/2020 COMPARISON: 06/18/2010 HISTORY: Shortness of breath TECHNIQUE: Single frontal view of the chest is obtained. FINDINGS: There is no focal air space opacity, pleural effusion, or pneumothorax seen. The cardiac silhouette size is within normal limits. The osseous structures are intact. Postsurgical change ove rlying the cervical spine. Mild hyperinflation no overt failure. Arthropathy of the shoulders and pos tsurgical change involving the left shoulder. IMPRESSION: No acute process.
[2020-08-23 13:51] LABS: Basophils # (A) 0.1 k/uL (0-0.2); Basophils % (A) 1 %; Eosinophils # (A) 0.1 k/uL (0-0.7); Eosinophils % (A) 1 %; HCT 43.7 % (34.0-46.0); HGB 14.5 gm/dL (11.4-16.0); Lymphocytes # (A) 1.8 k/uL (1.0-4.8); Lymphocytes % (A) 19 %; MCH 31.5 pg (25.0-35.0); MCHC 33.3 g/dL (31.0-37.0); MCV 94.5 fL (80.0-100.0); Mean Platelet Volume 7.3; Monocytes # (A) 0.7 k/uL (0-1.0); Monocytes % (A) 7 %; Neutrophils # (A) 6.7 k/uL (1.3-7.7); Neutrophils % (A) 71 %; Platelet Count 376 k/uL (150-450); RBC 4.62 m/uL (3.80-5.40); WBC 9.4 k/uL (3.8-10.6)
[2020-08-23 14:02] LABS: African American GFR (CKD) >90 (>60 ml/min/1.73 sqM); Anion Gap 7 mmol/L; Blood Urea Nitrogen 18 mg/dL (7-17); Calcium 9.4 mg/dL (8.4-10.2); Carbon Dioxide 23 mmol/L (22-30); Chloride 110 mmol/L (98-107); Glucose 81 mg/dL (74-99); Non-African American GFR(CKD) >90 (>60 ml/min/1.73 sqM); Sodium 140 mmol/L (137-145)
[2020-08-23 14:03] LABS: Potassium 5.1 mmol/L (3.5-5.1)
[2020-08-23 14:05] LABS: D-Dimer 0.43 mg/L FEU (<0.60); INR 0.9 (<1.2); Prothrombin Time 9.7 sec (9.0-12.0)
[2020-08-23 14:06] LABS: Partial Thromboplastin Time 22.9 sec (22.0-30.0)
[2020-08-23] MEDS ORDERED: ACET/COD 300 MG/30 MG STARTER PACK 6 TAB BTL PO STA (14:24)
[2020-08-23 14:51] VITALS: BP 133/84; PULSE 97; RESP 18
== END 2020-08-23 14:50 | disposition home or self-care (01) ==
LOC: EC 12:44
DX: S29.011A Strain of muscle and tendon of front wall of thorax, initial encounter (principal); J44.9 Chronic obstructive pulmonary disease, unspecified; I10 Essential (primary) hypertension; E78.5 Hyperlipidemia, unspecified; E07.9 Disorder of thyroid, unspecified; F31.9 Bipolar disorder, unspecified; Z79.890 Hormone replacement therapy; Z79.899 Other long term (current) drug therapy; Z88.2 Allergy status to sulfonamides; Z88.5 Allergy status to narcotic agent; Z87.891 Personal history of nicotine dependence; Z98.84 Bariatric surgery status
CPT/HCPCS: 36415; 71045; 80048; 85025; 85379; 85610; 85730; 87635; 93005; 99285

== ENCOUNTER → 2022-01-17 | Outpatient (CLI) | payer OTHER ==
--- NOTE | 2022-01-18 15:11 | MM ---
Reason for Exam: Screening (asymptomatic). Last mammogram was performed 2 year(s) and 7 month(s) ago. Patient History: Menarche at age 11. First Full-Term at age 27. Hysterectomy at age 34. Postmenopausal. Estrogen for 4 years, 2 months, from age 44 until age 48. Paternal cousin had breast cancer, age 46. Risk Values: Gina 5 year model risk: 1.7%. NCI Lifetime model risk: 7.7%. Prior Study Comparison: 06/05/2016 Bilateral Screening Mammogram, [facility]. 06/30/2017 Bilateral Screening Mammogram, [facility]. 07/05/2019 Bilateral Screening Mammogram, [facility]. Tissue Density: The breast tissue is heterogeneously dense. This may lower the sensitivity of mammography. Findings: Analyzed By CAD. Benign calcification are present bilaterally. No suspicious spiculated or lobulated mass cluster of microcalcifications, architectural distortion, or other secondary signs of malignancy are radiographically apparent. Overall Assessment: Benign, BI-RAD 2 Management: Screening Mammogram of both breasts in 1 year. A clinical breast exam by your physician is recommended on an annual basis and results should be correlated with mammographic findings. Electronically signed and approved by: Rob Estrada D.O. Radiologis
== END | disposition home or self-care (01) ==
LOC: RADMAMWWP 12:54
PROVIDERS: ATTEND Family Medicine
DX: Z12.31 Encounter for screening mammogram for malignant neoplasm of breast (principal); Z78.0 Asymptomatic menopausal state; Z80.3 Family history of malignant neoplasm of breast
CPT/HCPCS: 77067

== ENCOUNTER 2022-02-25 09:31 | Emergency (ER) | payer OTHER ==
[2022-02-25 09:36] VITALS: BP 121/66; PULSE 94; RESP 18; TEMP 98
[2022-02-25] MEDS ORDERED: HYDROmorphone 1 MG/ML 1 ML SYRINGE IM STA (10:47)
[2022-02-25] MEDS ORDERED: LIDOCAINE 5% PATCH TOPICAL SCH (11:00)
--- NOTE | 2022-02-25 11:54 | ED ---
Back Pain [facility] - General Chief Complaint: Back Pain/Injury Stated Complaint: back pain Time Seen by Provider: 02/25/22 10:28 Source: patient Limitations: no limitations - History of Present Illness Initial Comments: Patient is 61-year-old female who presents to the emergency department with a chief complaint of low back pain. Patient states she has history of degenerative disc disease in the lumbar region. Patient states she has had multiple surgeries which she estimates were about 10 years ago. Patient states the back pain started last week. She denies injury. Patient states the back pain radiates down the front of breath of the legs. She does admit to history of radicular symptoms however states it has been a long time since she has experienced them. Pain is worsened with twisting of the lower back. Patient denies leg weakness, numbness, and tingling. She denies numbness and tingling in the groin and buttock region. Denies loss of bowel or bladder function. Days that she saw her primary care provider Dr. Jara last week who prescribed her a Medrol Dosepak and Tylenol 3. Patient states she ran out of her Tylenol 3 and finish the Medrol Dosepak with no improvement of symptoms. Patient states she has been taking Motrin, Tylenol, and muscle relaxers at home with no relief. Patient states she did have x-rays done at his office last week however does not know the results of them. Denies fever, chills, SOB, chest pain, abdominal pain, urinary symptoms, and other concerns. - Related Data Home Medications Medication Instructions Recorded Confirmed Albuterol Sulfate [Ventolin HFA] 1 - 2 puff INHALATION RT-QID PRN 02/11/17 02/11/17 Beclomethasone Dipropionate [Qvar 2 puff INHALATION RT-BID PRN 02/11/17 02/11/17 40 mcg] DULoxetine HCL [Cymbalta] 60 mg PO DAILY 02/11/17 02/11/17 Levothyroxine Sodium [Synthroid] 150 mcg PO DAILY 02/11/17 02/11/17 Methocarbamol [Robaxin] 500 mg PO BID PRN 02/11/17 02/11/17 Simvastatin [Zocor] 20 mg PO HS 02/11/17 02/11/17 amLODIPine [Norvasc] 10 mg PO DAILY 02/11/17 02/11/17 lamoTRIgine [LaMICtal] 200 mg PO BID 02/11/17 02/11/17 rOPINIRole HCL [Requip] 0.25 mg PO HS 02/11/17 02/11/17 traZODone HCL 50 mg PO HS PRN 02/11/17 02/11/17 traZODone HCL 50 mg PO QAM 02/11/17 02/11/17 Previous Rx's Medication Instructions Recorded Vancomycin Oral Solution 500 mg PO Q6HR #400 bottle 02/13/17 HYDROcodone/APAP 10-325MG [[place] 1 tab PO Q4HR PRN 3 Days #18 tab 02/25/22 10-325] Lidocaine 5% Patch [Lidoderm 5% 1 patch TOPICAL DAILY #7 patch 02/25/22 Patch] Allergies Allergy/AdvReac Type Severity Reaction Status Date / Time morphine Allergy Rash/Hives Verified 02/25/22 09:36 Sulfa (Sulfonamide Allergy Rash/Hives Verified 02/25/22 09:36 Antibiotics) Review of Systems ROS Statement: Those systems with pertinent positive or pertinent negative responses have been documented in the HPI. ROS Other: All systems not noted in ROS Statement are negative. Past Medical History Past Medical History: COPD, Hyperlipidemia, Hypertension, Thyroid Disorder Additional Past Medical History / Comment(s): RLS, chronic diarrhea (frequent); DJD with spinal surgury x 4 History of Any Multi-Drug Resistant Organisms: C-DIFF Date of last positivie culture/infection: 02/12/17 MDRO Source:: stool Past Surgical History: Bariatric Surgery, Hysterectomy, Orthopedic Surgery, Tonsillectomy Additional Past Surgical History / Comment(s): Neelam-en-Y sx in 1999; wrist, rotator cuff, bunionectomy; neck surgery Past Anesthesia/Blood Transfusion Reactions: No Reported Reaction Past Psychological History: Bipolar, Depression Smoking Status: Former smoker Past Alcohol Use History: Rare Past Drug Use History: None Reported - Past Family History Father Family Medical History: CVA/TIA Mother Family Medical History: Deep Vein Thrombosis (DVT), Pulmonary Embolus General Exam Limitations: no limitations General appearance: alert, in no apparent distress Eye exam: Present: normal appearance, PERRL, EOMI. Absent: scleral icterus, conjunctival injection, periorbital swelling Respiratory exam: Present: normal lung sounds bilaterally. Absent: respiratory distress, wheezes, rales, rhonchi, stridor Cardiovascular Exam: Present: regular rate, normal rhythm, normal heart sounds. Absent: systolic murmur, diastolic murmur, rubs, gallop, clicks Extremities exam: Present: normal inspection, full ROM, normal capillary refill Back exam: Present: paraspinal tenderness (lumbar). Absent: CVA tenderness (R), CVA tenderness (L), vertebral tenderness Neurological exam: Present: alert, oriented X3, CN II-XII intact Psychiatric exam: Present: normal affect, normal mood Course Vital Signs 02/25/22 09:32 Temperature 98.0 F Pulse Rate 94 Respiratory 18 Rate Blood Pressure 121/66 O2 Sat by Pulse 98 Oximetry Medical Decision Making - Medical Decision Making This is a 61-year-old female presenting with acute on chronic lower back pain. Thorough history and examination were performed. Patient is well-appearing. No reinjury. There is no neurological deficit. No saddle anesthesia. No loss of bowel or bladder function. Patient given Dilaudid and lidocaine patch which did improve symptoms. I spoke with Dr. Jara over the phone personally who recommends conservative treatment and follow up with him at earliest available appointment. This was discussed with patient who has an appointment in the morning. Patient was sent home with a short course of [place] and lidocaine patches. Return parameters discussed. Patient will follow-up with Dr. Jara tomorrow. She verbalizes understanding and is agreeable to this plan. Dr. Lr is my attending. Disposition Clinical Impression: Mechanical back pain Disposition: HOME SELF-CARE Condition: Good Instructions (If sedation given, give patient instructions): Acute Low Back Pain (ED) Additional Instructions: Please take medication as directed. Apply lidocaine patches as instructed. Follow-up with Dr. Jara for further evaluation and management of your back pain. Return to the emergency department if you experience new, concerning, or worsening symptoms. Prescriptions: Lidocaine 5% Patch [Lidoderm 5% Patch] 1 patch TOPICAL DAILY #7 patch HYDROcodone/APAP 10-325MG [[place] 10-325] 1 tab PO Q4HR PRN 3 Days #18 tab PRN Reason: Pain Is patient prescribed a controlled substance at d/c from ED?: Yes If prescribed controlled substance>3 days was MAPS reviewed?: Yes Referrals: Nikhil Jara MD [Primary Care Provider] - 1-2 days Time of Disposition: 11:54
== END 2022-02-25 12:10 | disposition home or self-care (01) ==
LOC: EC 09:31
DX: M54.50 Low back pain, unspecified (principal); J44.9 Chronic obstructive pulmonary disease, unspecified; I10 Essential (primary) hypertension; E78.5 Hyperlipidemia, unspecified; E07.9 Disorder of thyroid, unspecified; Z87.891 Personal history of nicotine dependence; Z88.2 Allergy status to sulfonamides; Z88.5 Allergy status to narcotic agent
CPT/HCPCS: 99283; 96372; J1170

== ENCOUNTER → 2023-01-27 | Outpatient (CLI) | payer OTHER ==
--- NOTE | 2023-01-28 14:51 | MM ---
Reason for Exam: Screening (asymptomatic). Last screening mammogram was performed 12 month(s) ago. Patient History: Menarche at age 11. First Full-Term at age 27. Hysterectomy at age 34. Postmenopausal. Estrogen for 4 years, 2 months, from age 44 until age 48. Paternal cousin had breast cancer, age 46. Risk Values: Gina 5 year model risk: 1.7%. NCI Lifetime model risk: 7.4%. Prior Study Comparison: 06/30/2017 Bilateral Screening Mammogram, [facility]. 07/05/2019 Bilateral Screening Mammogram, [facility] 01/17/2022 Bilateral MG screening mammo w CAD, [facility]. Tissue Density: The breast tissue is heterogeneously dense. This may lower the sensitivity of mammography. Findings: Analyzed By CAD. There is no suspicious group of microcalcifications or new suspicious mass in either breast. Stable benign round appearing calcifications. Overall Assessment: Benign, BI-RAD 2 Management: Screening Mammogram of both breasts in 1 year. A clinical breast exam by your physician is recommended on an annual basis and results should be correlated with mammographic findings. Note on Gina scores and lifetime risk: 1. A Gina score greater than 3% is considered moderate risk. If this is the case, consider specialist referral to assess eligibility for a risk reducing agent. If overall lifetime risk for the development of breast cancer is 20% or higher, the patient may qualify for future screening with alternating mammogram and breast MRI. Electronically signed and approved by: Onofre Triana D.O.
== END | disposition home or self-care (01) ==
LOC: RADMAMWWP 10:48
PROVIDERS: ATTEND Family Medicine
DX: Z12.31 Encounter for screening mammogram for malignant neoplasm of breast (principal); Z78.0 Asymptomatic menopausal state; Z80.3 Family history of malignant neoplasm of breast
CPT/HCPCS: 77063; 77067

== ENCOUNTER → 2024-03-19 | Outpatient (CLI) | payer OTHER ==
--- NOTE | 2024-04-14 12:19 | MM ---
Reason for Exam: Screening (asymptomatic). Last mammogram was performed 1 year(s) and 2 month(s) ago. Patient History: Menarche at age 11. First Full-Term at age 27. Hysterectomy at age 34. Postmenopausal. Estrogen for 4 years, 2 months, from age 44 until age 48. Paternal cousin had breast cancer, age 46. Risk Values: Gina 5 year model risk: 1.8%. NCI Lifetime model risk: 7.2%. Prior Study Comparison: 06/05/2016 Bilateral Screening Mammogram, [facility]. 06/30/2017 Bilateral Screening Mammogram, [facility]. 07/05/2019 Bilateral Screening Mammogram, [facility]. 01/17/2022 Bilateral MG screening mammo w CAD, [facility]. 01/27/2023 Bilateral MG 3D screening mammo w/cad, [facility]. Tissue Density: There are scattered areas of fibroglandular density. Findings: Analyzed By CAD. Right breast: There is no suspicious group of microcalcifications or new suspicious mass. Left breast: There is no suspicious group of microcalcifications or new suspicious mass. Overall Assessment: Negative, BI-RAD 1 Management: Screening Mammogram of both breasts in [address] [facility] will attempt to contact patient to return for supplemental views and ultrasound if indicated. Patient should continue monthly self-breast exams. A clinical breast exam by your physician is recommended on an annual basis. This exam should not preclude additional follow-up of suspicious palpable abnormalities. Note on Gina scores and lifetime risk: 1. A Gina score greater than 3% is considered moderate risk. If this is the case, consider specialist referral to assess eligibility for a risk reducing agent. 2. If overall lifetime risk for the development of breast cancer is 20% or higher, the patient may qualify for future screening with alternating mammogram and breast MRI. Electronically signed and approved by: Rashid Chi DO
== END | disposition home or self-care (01) ==
LOC: RADMAMWWP 12:30
PROVIDERS: ATTEND Family Medicine
DX: Z12.31 Encounter for screening mammogram for malignant neoplasm of breast (principal); R92.323 Mammographic fibroglandular density, bilateral breasts; Z78.0 Asymptomatic menopausal state; Z80.3 Family history of malignant neoplasm of breast
CPT/HCPCS: 77063; 77067

== ENCOUNTER → 2024-06-28 | Outpatient (CLI) | payer MEDICARE, OTHER ==
[~2024-06-28] MED LIST: REGADENOSON 0.4 MG/5 ML SYRINGE IV PRN
--- NOTE | 2024-06-28 12:13 | CA ---
Lexiscan Nuclear Stress Test Report Name: Mel Lobo Exam Date: 06/28/2024 10:06 Exam Location: [facility] Stress Ht (in): 64 Wt (lb): 147 BSA: 1.72 Ordering Phys: Nikhil Jara MD Referring Phys: RJ, Technologist: Jesus Cabrera Age: 64 Gender: F : 1960 Procedure CPT: Indications: R06.02 Shortness of breath R07.9 chest pain; Z82.4 ICD-10 Codes: Patient History: Medications: Meds past 24 hrs: Pretest Chest Pain: STRESS TEST Lexiscan Protocol Exercise Duration (min:sec): 02:[address] Depressions (mm): Angina Score: Vargas Score: Resting HR (bpm): 89 Peak HR (bpm): 101 Resting BP (mmHg): 127 / 79 Peak BP (mmHg): 135 / 75 MPHR: 155 Target HR: 132 % MPHR: 65 METS: 1.0 Total Dose: Peak Dose: Atropine: Double Product: 79459 BP Response: Stress Termination: INFUSION COMPLETE Stress Symptoms: NO SYMPTOMS Stress Summary: ECG ANALYSIS Resting ECG: Stress ECG: CONCLUSIONS Nondiagnostic stress test Dr. Marcelino Zee MD (Electronically Signed) Final Date: 28 June 2024 12:12
== END | disposition home or self-care (01) ==
LOC: RADNMMAIN 08:11
PROVIDERS: ATTEND Family Medicine
DX: R06.02 Shortness of breath (principal); R07.9 Chest pain, unspecified; Z82.49 Family history of ischemic heart disease and other diseases of the circulatory system
CPT/HCPCS: 93017; 78452; A9500; J2785